=== PATIENT | male | born 1985 | race Two or more races ===

== ENCOUNTER 2023-09-24 17:44 | Emergency (ER) | payer OTHER ==
[~2023-09-24] VITALS: Ht 157.5 cm; Wt 59.1 kg
[2023-09-24] MEDS: ONDANSETRON HCL 4 MG/2 ML VIAL IV ONE (19:39)
[2023-09-24] MEDS: MORPHINE SULFATE 4 MG/ML SYR/VIAL IV ONE (19:40)
[2023-09-24 19:45] VITALS: PULSE 85; RESP 18; O2SAT 96
[2023-09-24] MEDS: LIDOCAINE 1% HCL (LOCAL ANESTH.) INJ 20ML MDV ONE (20:35)
[2023-09-24] MEDS: LIDOCAINE 1% HCL (LOCAL ANESTH.) INJ 20ML MDV ID ONE (20:42)
[2023-09-24] MEDS ORDERED: HYDR-4795 PO (20:58)
[2023-09-24] MEDS ORDERED: CYCL-837 PO (20:58)
[2023-09-24] MEDS: HYDROcodone-ACET 7.5/325MG TAB PO ONE (21:20)
[2023-09-24 21:23] VITALS: BP 138/72; PULSE 94; RESP 20; TEMP 98.4; O2SAT 96
== END 2023-09-24 21:24 | disposition home or self-care (01) ==
LOC: EDUNIT# 17:44 → ER 17:44 → EDBD 17:44 → ER 21:24
DX: S40.011A Contusion of right shoulder, initial encounter (principal); S50.11XA Contusion of right forearm, initial encounter; S60.222A Contusion of left hand, initial encounter; J45.909 Unspecified asthma, uncomplicated; F12.90 Cannabis use, unspecified, uncomplicated; Z88.0 Allergy status to penicillin; Z88.2 Allergy status to sulfonamides; V29.99XA Rider (driver) (passenger) of other motorcycle injured in unspecified traffic accident, initial encounter; Y93.89 Activity, other specified; Y92.89 Other specified places as the place of occurrence of the external cause; Y99.8 Other external cause status
CPT/HCPCS: 71250; 73070; 73090; 73120; 74176; 96374; 96375; 99285; J2270; J2405; J2001